=== PATIENT | male | born 2000 | race African-American/Black ===

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

== ENCOUNTER 2019-01-18 14:30 | Emergency (ER) | payer SELFPAY ==
[2019-01-18] MEDS ORDERED: Acetaminophen 500 MG TAB ONE (15:51)
[2019-01-18] MEDS ORDERED: Ibuprofen 400 MG TAB ONE (15:51)
== END 2019-01-18 16:00 | disposition home or self-care (01) ==
LOC: MADERS 14:30
DX: R51 Headache (principal); E66.9 Obesity, unspecified; F20.9 Schizophrenia, unspecified; F41.9 Anxiety disorder, unspecified; F32.9 Major depressive disorder, single episode, unspecified; F90.9 Attention-deficit hyperactivity disorder, unspecified type; Z79.899 Other long term (current) drug therapy
CPT/HCPCS: 99283

== ENCOUNTER 2019-01-30 23:42 | Emergency (ER) | payer SELFPAY ==
[2019-01-31 00:22] LABS: Bilirubin Negative (Negative); Blood, Urine Trace (Negative); Clarity Clear (Clear); Glucose, Urine (Dipstick) Negative (Negative); Leukocyte Negative (Negative); Nitrite Negative (Negative); Protein, Urine (Dipstick) Negative (Neg-Trace); Urobilinogen 0.2 mg/dL (Less than 2)
[2019-01-31 00:24] LABS: Bacteria/HPF None Seen HPF (None Seen); Squamous Epithelial None Seen HPF (0-3); WBC/HPF None Seen HPF (0-3)
[2019-01-31] MEDS ORDERED: Doxycycline 100 MG CAP ONE (00:40)
== END 2019-01-31 00:50 | disposition home or self-care (01) ==
LOC: MADERS 23:42
DX: N34.1 Nonspecific urethritis (principal); J06.9 Acute upper respiratory infection, unspecified; F20.9 Schizophrenia, unspecified; F41.9 Anxiety disorder, unspecified; F32.9 Major depressive disorder, single episode, unspecified; Z79.899 Other long term (current) drug therapy
CPT/HCPCS: 81003; 81015; 99283

== ENCOUNTER 2019-03-29 03:12 | Emergency (ER) | payer SELFPAY | END 2019-03-29 03:44 | disposition home or self-care (01) | LOC: MADERS 03:12 | DX: S09.90XA Unspecified injury of head, initial encounter (principal); S20.219A Contusion of unspecified front wall of thorax, initial encounter; F20.9 Schizophrenia, unspecified; F41.9 Anxiety disorder, unspecified; F32.9 Major depressive disorder, single episode, unspecified; F90.9 Attention-deficit hyperactivity disorder, unspecified type; Z79.899 Other long term (current) drug therapy; W10.9XXA Fall (on) (from) unspecified stairs and steps, initial encounter | CPT/HCPCS: 99281 ==

== ENCOUNTER 2019-05-23 18:19 | Emergency (ER) | payer SELFPAY | END 2019-05-23 18:38 | disposition home or self-care (01) | LOC: MADERS 18:19 | DX: M79.645 Pain in left finger(s) (principal); E11.9 Type 2 diabetes mellitus without complications; E66.9 Obesity, unspecified; M10.9 Gout, unspecified; F41.9 Anxiety disorder, unspecified; F32.9 Major depressive disorder, single episode, unspecified; F90.9 Attention-deficit hyperactivity disorder, unspecified type; Z79.899 Other long term (current) drug therapy | CPT/HCPCS: 99281 ==

== ENCOUNTER 2019-07-22 22:33 | Emergency (ER) | payer SELFPAY ==
[2019-07-22] MEDS ORDERED: HYDROcodone/Acetaminophen 5/325 mg Tablet ONE (23:00)
== END 2019-07-22 23:02 | disposition home or self-care (01) ==
LOC: MADERS 22:33
DX: M25.562 Pain in left knee (principal); F20.9 Schizophrenia, unspecified; F41.9 Anxiety disorder, unspecified; F32.9 Major depressive disorder, single episode, unspecified; F90.9 Attention-deficit hyperactivity disorder, unspecified type; E11.9 Type 2 diabetes mellitus without complications
CPT/HCPCS: 99283

== ENCOUNTER 2019-10-02 01:02 | Emergency (ER) | payer SELFPAY ==
[2019-10-02] MEDS ORDERED: Ondansetron ODT 4 MG TAB ONE (01:20)
[2019-10-02 02:11] LABS: Band 1 % (5-11); Eosinophils 1 % (0-10); Hemoglobin 15.5 g/dL (14.0-18.0); Lymphocytes 19 % (28-48); MDiff Complete? YES; Mean Corpuscular HGB CONC 30.2 g/dL (32.0-36.0); Mean Corpuscular Hemoglobin 24.7 pg (25.0-35.0); Mean Corpuscular Volume 81.8 fL (78.0-98.0); Mean Platelet Volume 8.4 fL (7.4-10.4); Monocytes 4 % (0-4); Neutrophil 75 % (31-61); Platelet Count 219 thou/uL (130-400); RBC Distribution Width 13.2 % (11.5-14.5)
[2019-10-02 02:21] LABS: ALT (SGPT) 38 U/L (8-55); AST (SGOT) 36 U/L (5-34); Albumin 4.4 g/dL (3.5-5.0); Alkaline Phosphatase 91 U/L (50-130); Anion Gap 18 mmol/L (10-20); BUN (Urea Nitrogen) 10 mg/dL (8.9-20.6); Bilirubin, Total 0.4 mg/dL (0.2-1.2); Calc. Creatinine Clearance 0 mL/min (70-130); Calcium 9.7 mg/dL (7.8-10.44); Carbon Dioxide 19 mmol/L (22-29); Chloride 109 mmol/L (98-107); Estimated GFR-MDRD Greater than 90; Globulin 3.5 g/dL (2.4-3.5); Glucose 96 mg/dL (70-105); Lipase 37 U/L (8-78); Potassium 4.3 mmol/L (3.5-5.1); Protein, Total 7.9 g/dL (6.0-8.3); Sodium 142 mmol/L (136-145)
== END 2019-10-02 02:30 | disposition home or self-care (01) ==
LOC: MADERS 01:02
DX: R10.13 Epigastric pain (principal); R11.2 Nausea with vomiting, unspecified; F20.9 Schizophrenia, unspecified; F41.9 Anxiety disorder, unspecified; F90.9 Attention-deficit hyperactivity disorder, unspecified type; M10.9 Gout, unspecified
CPT/HCPCS: 36416; 80053; 83690; 85025; 99284; Q0162

== ENCOUNTER 2019-11-02 21:21 | Emergency (ER) | payer SELFPAY ==
[2019-11-02] MEDS ORDERED: Mag-Al Plus 1200 MG/1200 MG/120 MG/30 ML UDCUP ONE (21:48)
[2019-11-02] MEDS ORDERED: Lidocaine Viscous Sol 2% 15 ml UD Cup ONE (21:48)
== END 2019-11-02 22:02 | disposition home or self-care (01) ==
LOC: MADERS 21:21
DX: K29.00 Acute gastritis without bleeding (principal); I10 Essential (primary) hypertension; E66.01 Morbid (severe) obesity due to excess calories; E88.9 Metabolic disorder, unspecified; M10.9 Gout, unspecified; F20.9 Schizophrenia, unspecified; F41.9 Anxiety disorder, unspecified; F90.9 Attention-deficit hyperactivity disorder, unspecified type; F32.9 Major depressive disorder, single episode, unspecified; Z79.899 Other long term (current) drug therapy

== ENCOUNTER 2020-02-27 12:53 | Emergency (ER) | payer SELFPAY ==
[2020-02-27] MEDS ORDERED: Tetracaine 0.5% OPHTH SOLN/PF 4 ML BOT ONE (13:21)
[2020-02-27] MEDS ORDERED: Fluorescein Opthalmic Strip ONE (13:21)
== END 2020-02-27 13:46 | disposition home or self-care (01) ==
LOC: MADERS 12:53
DX: H01.9 Unspecified inflammation of eyelid (principal); I10 Essential (primary) hypertension; I47.1 Supraventricular tachycardia; E88.9 Metabolic disorder, unspecified; F20.9 Schizophrenia, unspecified; F41.9 Anxiety disorder, unspecified; I51.7 Cardiomegaly; F32.9 Major depressive disorder, single episode, unspecified; F90.9 Attention-deficit hyperactivity disorder, unspecified type; E66.9 Obesity, unspecified; M10.9 Gout, unspecified; E11.9 Type 2 diabetes mellitus without complications; Z79.899 Other long term (current) drug therapy
CPT/HCPCS: 99283

== ENCOUNTER 2021-01-22 13:23 | Outpatient (CLI) | payer OTHER ==
[2021-01-22 14:06] LABS: CKMB 1.5 ng/mL (0-6.6); Troponin I Less than 0.010 ng/mL (< 0.028)
[2021-01-22 14:08] LABS: ALT (SGPT) 39 U/L (8-55); AST (SGOT) 28 U/L (5-34); Albumin 4.3 g/dL (3.5-5.0); Alkaline Phosphatase 86 U/L (40-110); Anion Gap 15 mmol/L (10-20); BUN (Urea Nitrogen) 9 mg/dL (8.9-20.6); Bilirubin, Total 0.5 mg/dL (0.2-1.2); Calc. Creatinine Clearance 0 mL/min (70-130); Calcium 9.8 mg/dL (7.8-10.44); Carbon Dioxide 24 mmol/L (22-29); Cardiac Risk 5.9 (Less than 4.5); Chloride 104 mmol/L (98-107); Cholesterol 217 mg/dl (< 200 Desired); Globulin 3.2 g/dL (2.4-3.5); Glucose 92 mg/dL (70-105); HDL Cholesterol 37 mg/dL (>60 Neg Risk); LDL Cholesterol, Calculated 140 mg/dL; Potassium 4.1 mmol/L (3.5-5.1); Protein, Total 7.5 g/dL (6.0-8.3); Sodium 139 mmol/L (136-145); Triglycerides 198 mg/dL (Less than 150); Uric Acid 10.4 mg/dL (3.5-7.2)
[2021-01-22 14:18] LABS: Thyroid Stimulating Hormone 1.4106 uIU/mL (0.35-4.94)
[2021-01-22 21:06] LABS: Free T4 (Free Thyroxine) 0.89 ng/dL (0.70-1.48)
== END 2021-01-22 13:24 | disposition home or self-care (01) ==
LOC: MADLAB 13:23
PROVIDERS: ATTEND Family Medicine
DX: I47.1 Supraventricular tachycardia (principal); R07.1 Chest pain on breathing; M1A.9XX0 Chronic gout, unspecified, without tophus (tophi)
CPT/HCPCS: 36415; 80053; 80061; 82553; 84439; 84443; 84481; 84484; 84550

== ENCOUNTER 2021-01-22 13:27 | Outpatient (CLI) | payer OTHER | END 2021-01-22 13:28 | disposition home or self-care (01) | LOC: MADRAD 13:27 | PROVIDERS: ATTEND Family Medicine | DX: R00.0 Tachycardia, unspecified (principal); M25.561 Pain in right knee; M25.562 Pain in left knee; R07.89 Other chest pain | CPT/HCPCS: 93005; 93010 ==

== ENCOUNTER 2021-06-01 23:36 | Emergency (ER) | payer OTHER ==
[2021-06-02] MEDS ORDERED: Mag-Al Plus 1200 MG/1200 MG/120 MG/30 ML UDCUP ONE (00:07)
[2021-06-02] MEDS ORDERED: Lidocaine Viscous Sol 2% 15 ml UD Cup ONE (00:07)
[2021-06-02 00:57] LABS: Eosinophils 2 % (0-10); Hemoglobin 16.9 g/dL (14.0-18.0); Lymphocytes 43 % (21-51); MDiff Complete? YES; Mean Corpuscular HGB CONC 30.9 g/dL (32.0-36.0); Mean Corpuscular Hemoglobin 25.1 pg (27.0-31.0); Mean Corpuscular Volume 81.2 fL (78.0-98.0); Mean Platelet Volume 7.4 fL (7.4-10.4); Monocytes 3 % (0-10); Neutrophil 52 % (42-75); Platelet Count 273 thou/uL (130-400); RBC Distribution Width 12.8 % (11.5-14.5); RBC Morphology Normal; Red Blood Cell (RBC) Count 6.74 mill/uL (4.70-6.10); White Blood Cell (WBC) Count 6.8 thou/uL (4.8-10.8)
[2021-06-02] MEDS ORDERED: Famotidine 20 MG TAB ONE (01:06)
[2021-06-02 01:10] LABS: ALT (SGPT) 22 U/L (8-55); AST (SGOT) 17 U/L (5-34); Albumin 4.4 g/dL (3.5-5.0); Alkaline Phosphatase 90 U/L (40-110); Anion Gap 16 mmol/L (10-20); BUN (Urea Nitrogen) 10 mg/dL (8.9-20.6); Bilirubin, Total 0.3 mg/dL (0.2-1.2); Calc. Creatinine Clearance 0 mL/min (70-130); Chloride 104 mmol/L (98-107); Globulin 3.4 g/dL (2.4-3.5); Glucose 99 mg/dL (70-105); Lipase 52 U/L (8-78); Potassium 3.9 mmol/L (3.5-5.1); Protein, Total 7.8 g/dL (6.0-8.3); Sodium 139 mmol/L (136-145)
[2021-06-02 01:16] LABS: Carbon Dioxide 23 mmol/L (22-29)
== END 2021-06-02 01:37 | disposition home or self-care (01) ==
LOC: MADERS 23:36
DX: K29.00 Acute gastritis without bleeding (principal); I10 Essential (primary) hypertension; E11.9 Type 2 diabetes mellitus without complications; M10.9 Gout, unspecified; I51.7 Cardiomegaly; E88.89 Other specified metabolic disorders; E66.9 Obesity, unspecified; Z68.45 Body mass index [BMI] 70 or greater, adult; Z87.19 Personal history of other diseases of the digestive system
CPT/HCPCS: 80053; 83690; 85025; 99284

== ENCOUNTER 2021-08-07 17:24 | Emergency (ER) | payer OTHER ==
[2021-08-07 18:45] LABS: ALT (SGPT) 33 U/L (8-55); AST (SGOT) 46 U/L (5-34); Acetaminophen Less than 6.0 mcg/mL (10.0-30.0); Albumin 4.9 g/dL (3.5-5.0); Alcohol Less than 10 mg/dL (Less than 10); Alkaline Phosphatase 96 U/L (40-110); Anion Gap 22 mmol/L (10-20); BUN (Urea Nitrogen) 12 mg/dL (8.9-20.6); Bilirubin, Total 0.6 mg/dL (0.2-1.2); Calc. Creatinine Clearance 0 mL/min (70-130); Carbon Dioxide 19 mmol/L (22-29); Chloride 105 mmol/L (98-107); Glucose 109 mg/dL (70-105); Lipase 33 U/L (8-78); Protein, Total 7.9 g/dL (6.0-8.3); Salicylate Less than 8.0 mg/dL (15.0-30.0); Sodium 142 mmol/L (136-145)
[2021-08-07 19:17] LABS: Bilirubin Small (Negative); Blood, Urine Moderate (Negative); Clarity Clear (Clear); Glucose, Urine (Dipstick) Negative (Negative); Ketone, Urine 80 mg/dL (Negative); Leukocyte Negative (Negative); Nitrite Negative (Negative); Protein, Urine (Dipstick) Negative (Neg-Trace); Urobilinogen 0.2 mg/dL (Less than 2)
[2021-08-07 19:19] LABS: Hemoglobin 16.3 g/dL (14.0-18.0); Mean Corpuscular HGB CONC 30.6 g/dL (32.0-36.0); Mean Corpuscular Hemoglobin 24.4 pg (27.0-31.0); Mean Corpuscular Volume 79.5 fL (78.0-98.0); Mean Platelet Volume 8.1 fL (7.4-10.4); Platelet Count 271 thou/uL (130-400); RBC Distribution Width 12.6 % (11.5-14.5); Red Blood Cell (RBC) Count 6.68 mill/uL (4.70-6.10); White Blood Cell (WBC) Count 6.9 thou/uL (4.8-10.8)
[2021-08-07 19:20] LABS: Band 2 % (5-11); Eosinophils 2 % (0-10); Lymphocytes 17 % (21-51); MDiff Complete? YES; Monocytes 2 % (0-10); Neutrophil 70 % (42-75); Platelet Morphology Comment Appears Adequate; RBC Morphology Normal; Reactive Lymphocytes 7 % (0-10)
[2021-08-07 19:22] LABS: Specific Gravity, Urine 1.028 (1.002-1.036)
[2021-08-07 19:24] LABS: Amphetamine Not Detected (NotDetected); Barbiturates Screen Not Detected (NotDetected); Benzodiazepine Screen Not Detected (NotDetected); Cocaine Metabolite Screen Not Detected (NotDetected); Medtox Control Line Valid? VALID (VALID); Methadone Not Detected (NotDetected); Methamphetamine Not Detected (NotDetected); Opiate Screen Not Detected (NotDetected); Oxycodone Screen Not Detected (NotDetected); Phencyclidine (PCP) Not Detected (NotDetected); THC/Cannabinoid Screen Not Detected (NotDetected); Tricyclic Screen Not Detected (NotDetected)
[2021-08-07 19:26] LABS: Bacteria/HPF Rare-Few HPF (None Seen); RBC/HPF 0-3 HPF (0-3); Squamous Epithelial 0-3 HPF (0-3); WBC/HPF 0-3 HPF (0-3)
[2021-08-07] MEDS ORDERED: Atenolol 25 MG TAB ONE (19:32)
== END 2021-08-07 19:53 | disposition home or self-care (01) ==
LOC: MADERS 17:24
DX: S46.912A Strain of unspecified muscle, fascia and tendon at shoulder and upper arm level, left arm, initial encounter (principal); S39.012A Strain of muscle, fascia and tendon of lower back, initial encounter; R00.0 Tachycardia, unspecified; X50.0XXA Overexertion from strenuous movement or load, initial encounter; E66.9 Obesity, unspecified; M10.9 Gout, unspecified; I10 Essential (primary) hypertension; E11.9 Type 2 diabetes mellitus without complications
CPT/HCPCS: 71046; 80053; 80306; 80307; 81003; 81015; 83690; 83735; 84443; 84484; 85025; 85379; 93005; 94760

== ENCOUNTER 2022-03-04 02:54 | Emergency (ER) | payer OTHER ==
[2022-03-04] MEDS ORDERED: Mag-Al Plus 1200 MG/1200 MG/120 MG/30 ML UDCUP ONE (03:25)
[2022-03-04] MEDS ORDERED: Aspirin Chewable 81 MG TAB ONE (03:25)
[2022-03-04] MEDS ORDERED: Lidocaine Viscous Sol 2% 15 ml UD Cup ONE (03:25)
[2022-03-04 03:41] LABS: Band 1 % (5-11); Eosinophils 3 % (0-10); Hemoglobin 15.9 g/dL (14.0-18.0); Lymphocytes 40 % (21-51); MDiff Complete? YES; Mean Corpuscular HGB CONC 29.7 g/dL (32.0-36.0); Mean Corpuscular Hemoglobin 24.2 pg (27.0-31.0); Mean Corpuscular Volume 81.6 fL (78.0-98.0); Mean Platelet Volume 10.1 fL (7.4-10.4); Monocytes 6 % (0-10); Neutrophil 50 % (42-75); Platelet Count 225 thou/uL (130-400); Platelet Morphology Comment Appears Adequate; RBC Distribution Width 13.2 % (11.5-14.5); RBC Morphology Normal; Red Blood Cell (RBC) Count 6.58 mill/uL (4.70-6.10); White Blood Cell (WBC) Count 5.6 thou/uL (4.8-10.8)
[2022-03-04] MEDS ORDERED: Famotidine 20 MG TAB ONE (03:43)
[2022-03-04 03:50] LABS: ALT (SGPT) 21 U/L (8-55); AST (SGOT) 23 U/L (5-34); Albumin 4.5 g/dL (3.5-5.0); Alkaline Phosphatase 87 U/L (40-110); Anion Gap 17 mmol/L (10-20); BUN (Urea Nitrogen) 14 mg/dL (8.9-20.6); Bilirubin, Total 0.5 mg/dL (0.2-1.2); Calc. Creatinine Clearance 0 mL/min (70-130); Calcium 10.3 mg/dL (7.8-10.44); Carbon Dioxide 26 mmol/L (22-29); Chloride 105 mmol/L (98-107); Estimated GFR 98; Globulin 3.1 g/dL (2.4-3.5); Glucose 93 mg/dL (70-105); Lipase 54 U/L (8-78); Potassium 4.3 mmol/L (3.5-5.1); Protein, Total 7.6 g/dL (6.0-8.3); Sodium 144 mmol/L (136-145)
== END 2022-03-04 08:14 | disposition home or self-care (01) ==
LOC: MADERS 02:54
DX: R07.2 Precordial pain (principal); I10 Essential (primary) hypertension; E11.9 Type 2 diabetes mellitus without complications; M10.9 Gout, unspecified; E07.9 Disorder of thyroid, unspecified; I47.1 Supraventricular tachycardia; K21.9 Gastro-esophageal reflux disease without esophagitis; E66.01 Morbid (severe) obesity due to excess calories; Z68.45 Body mass index [BMI] 70 or greater, adult; Z87.19 Personal history of other diseases of the digestive system
CPT/HCPCS: 36415; 71046; 80053; 83690; 84484; 85025; 93005; 94760

== ENCOUNTER 2022-06-19 01:57 | Emergency (ER) | payer OTHER, SELFPAY ==
[2022-06-19] MEDS ORDERED: Famotidine/PF 20 mg/2ml Vial ONE (03:06)
[2022-06-19] MEDS ORDERED: Aspirin Chewable 81 MG TAB ONE (03:06)
[2022-06-19] MEDS ORDERED: Mag-Al Plus 1200 MG/1200 MG/120 MG/30 ML UDCUP ONE (03:07)
[2022-06-19] MEDS ORDERED: Lidocaine Viscous Sol 2% 15 ml UD Cup ONE (03:07)
[2022-06-19 03:32] LABS: Band 7 % (5-11); Eosinophils 2 % (0-10); Hemoglobin 16.4 g/dL (14.0-18.0); Lymphocytes 26 % (21-51); MDiff Complete? YES; Mean Corpuscular Volume 81.4 fl (78.0-98.0); Mean Platelet Volume 9.5 fL (7.4-10.4); Monocytes 9 % (0-10); Neutrophil 56 % (42-75); Platelet Count 236 10x3/uL (130-400); RBC Distribution Width 12.5 % (11.5-14.5); RBC Morphology Normal; Red Blood Cell (RBC) Count 6.29 mill/uL (4.70-6.10); White Blood Cell (WBC) Count 6.4 10x3/uL (4.8-10.8)
[2022-06-19 03:34] LABS: ALT (SGPT) 20 U/L (8-55); Albumin 4.3 g/dL (3.5-5.0); Alkaline Phosphatase 84 U/L (40-110); Anion Gap 18 mmol/L (10-20); BUN (Urea Nitrogen) 11 mg/dL (8.9-20.6); Bilirubin, Total 0.4 mg/dL (0.2-1.2); Calc. Creatinine Clearance 0 mL/min (70-130); Carbon Dioxide 21 mmol/L (22-29); Chloride 105 mmol/L (98-107); Estimated GFR 128; Globulin 3.4 g/dL (2.4-3.5); Glucose 91 mg/dL (70-105); Lipase 58 U/L (8-78); Potassium 4.4 mmol/L (3.5-5.1); Protein, Total 7.7 g/dL (6.0-8.3); Sodium 140 mmol/L (136-145)
[2022-06-19 03:35] LABS: AST (SGOT) 26 U/L (5-34)
[2022-06-19 06:44] LABS: Troponin I Less than 0.010 ng/mL (< 0.028)
[2022-06-19 07:07] LABS: Amphetamine Not Detected (NotDetected); Barbiturates Screen Not Detected (NotDetected); Benzodiazepine Screen Not Detected (NotDetected); Cocaine Metabolite Screen Not Detected (NotDetected); Methadone Not Detected (NotDetected); Methamphetamine Not Detected (NotDetected); Opiate Screen Not Detected (NotDetected); Oxycodone Screen Not Detected (NotDetected); Phencyclidine (PCP) Not Detected (NotDetected); THC/Cannabinoid Screen Not Detected (NotDetected); Tricyclic Screen Not Detected (NotDetected)
[2022-06-19 07:08] LABS: Medtox Control Line Valid? VALID (VALID)
== END 2022-06-19 07:12 | disposition home or self-care (01) ==
LOC: MADERS 01:57
DX: R07.89 Other chest pain (principal); K21.9 Gastro-esophageal reflux disease without esophagitis; E78.00 Pure hypercholesterolemia, unspecified; I10 Essential (primary) hypertension; E11.9 Type 2 diabetes mellitus without complications
CPT/HCPCS: 71045; 80053; 80306; 83690; 84484; 85025; 85379; 93005; 96374; S0028

== ENCOUNTER 2022-07-26 01:58 | Emergency (ER) | payer SELFPAY ==
[2022-07-26] MEDS ORDERED: Mag-Al Plus 1200 MG/1200 MG/120 MG/30 ML UDCUP ONE (02:17)
[2022-07-26] MEDS ORDERED: Lidocaine Viscous Sol 2% 15 ml UD Cup ONE (02:17)
== END 2022-07-26 02:33 | disposition home or self-care (01) ==
LOC: MADERS 01:58
DX: K29.70 Gastritis, unspecified, without bleeding (principal); I10 Essential (primary) hypertension; E78.00 Pure hypercholesterolemia, unspecified
CPT/HCPCS: 99283

== ENCOUNTER 2022-09-03 02:45 | Emergency (ER) | payer SELFPAY ==
[2022-09-03] MEDS ORDERED: Lidocaine Viscous Sol 2% 15 ml UD Cup ONE (03:03)
[2022-09-03] MEDS ORDERED: Mag-Al Plus 1200 MG/1200 MG/120 MG/30 ML UDCUP ONE (03:03)
== END 2022-09-03 03:26 | disposition home or self-care (01) ==
LOC: MADERS 02:45
DX: K29.70 Gastritis, unspecified, without bleeding (principal); I10 Essential (primary) hypertension; E78.00 Pure hypercholesterolemia, unspecified
CPT/HCPCS: 71045; 93005

== ENCOUNTER 2022-11-04 21:26 | Emergency (ER) | payer BC, SELFPAY ==
[2022-11-04] MEDS ORDERED: Tetracaine 0.5% PF 4 ML BOT ONE (21:56)
[2022-11-04] MEDS ORDERED: Fluorescein Opthalmic Strip ONE (21:56)
== END 2022-11-04 22:28 | disposition home or self-care (01) ==
LOC: MADERS 21:26
DX: S63.501A Unspecified sprain of right wrist, initial encounter (principal); H10.9 Unspecified conjunctivitis; I10 Essential (primary) hypertension; E78.00 Pure hypercholesterolemia, unspecified; X50.1XXA Overexertion from prolonged static or awkward postures, initial encounter
CPT/HCPCS: 99283

== ENCOUNTER 2022-11-15 01:47 | Emergency (ER) | payer BC ==
[2022-11-15] MEDS ORDERED: Lidocaine Viscous Sol 2% 15 ml UD Cup ONE (02:03)
[2022-11-15] MEDS ORDERED: Mag-Al Plus 1200 MG/1200 MG/120 MG/30 ML UDCUP ONE (02:03)
== END 2022-11-15 02:38 | disposition home or self-care (01) ==
LOC: MADERS 01:47
DX: R10.13 Epigastric pain (principal); I10 Essential (primary) hypertension; E66.9 Obesity, unspecified
CPT/HCPCS: 99283

== ENCOUNTER 2023-01-16 11:50 | Emergency (ER) | payer BC ==
[2023-01-16] MEDS ORDERED: NEOMYCIN-POLYMYXIN-HC EAR SUSP 200 DROP/10 ML BOT ONE (12:32)
== END 2023-01-16 12:40 | disposition home or self-care (01) ==
LOC: MADERS 11:50
DX: L30.9 Dermatitis, unspecified (principal); E66.9 Obesity, unspecified; E78.00 Pure hypercholesterolemia, unspecified; I10 Essential (primary) hypertension
CPT/HCPCS: 99282

== ENCOUNTER 2023-01-20 06:19 | Emergency (ER) | payer BC ==
[2023-01-20 07:30] LABS: Amphetamine Not Detected (NotDetected); Barbiturates Screen Not Detected (NotDetected); Benzodiazepine Screen Not Detected (NotDetected); Cocaine Metabolite Screen Not Detected (NotDetected); Methadone Not Detected (NotDetected); Methamphetamine Not Detected (NotDetected); Opiate Screen Not Detected (NotDetected); Oxycodone Screen Not Detected (NotDetected); Phencyclidine (PCP) Not Detected (NotDetected); THC/Cannabinoid Screen Not Detected (NotDetected); Tricyclic Screen Not Detected (NotDetected)
[2023-01-20 07:31] LABS: Clarity Clear (Clear)
[2023-01-20 07:36] LABS: Hemoglobin 16.4 g/dL (14.0-18.0); Mean Corpuscular HGB CONC 31.1 g/dL (32.0-36.0); Mean Corpuscular Hemoglobin 25.6 pg (27.0-31.0); Mean Corpuscular Volume 82.5 fl (78.0-98.0); Mean Platelet Volume 10.5 fL (7.4-10.4); Platelet Count 170 10x3/uL (130-400); RBC Distribution Width 13.9 % (11.5-14.5); White Blood Cell (WBC) Count 3.2 10x3/uL (4.8-10.8)
[2023-01-20 07:40] LABS: MDiff Complete? YES; Manual Diff?? YES
[2023-01-20 07:41] LABS: Anisocytosis SLIGHT = 6-15 cells (100X) (0-5/hpf); Band 2 % (5-11); Eosinophils 2 % (0-10); Lymphocytes 37 % (21-51); Monocytes 12 % (0-10); Neutrophil 47 % (42-75); Platelet Adequacy Comment Appears Adequate
[2023-01-20 07:52] LABS: Nitrite Unable to Interpret (Negative); Protein, Urine (Dipstick) Unable to Interpret mg/dL (Neg-Trace)
[2023-01-20 07:53] LABS: Glucose, Urine (Dipstick) Unable to Interpret mg/dL (Negative)
[2023-01-20 07:54] LABS: Blood, Urine Moderate (Negative); Ketone, Urine Unable to Interpret mg/dL (Negative)
[2023-01-20 07:55] LABS: Specific Gravity, Urine 1.028 (1.002-1.036)
[2023-01-20 07:56] LABS: Bilirubin Unable to Interpret (Negative); Leukocyte Unable to Interpret (Negative)
[2023-01-20 07:57] LABS: Bacteria/HPF 1+ HPF (None Seen); CAUTI Indications for Culture Pregnancy; RBC/HPF 21-50 HPF (0-3); Squamous Epithelial 0-3 HPF (0-3); WBC/HPF 0-3 HPF (0-3)
[2023-01-20 07:58] LABS: Urine Culture Reflex Yes Yes
[2023-01-20 08:03] LABS: ALT (SGPT) 33 U/L (8-55); AST (SGOT) 34 U/L (5-34); Albumin 4.5 g/dL (3.5-5.0); Alkaline Phosphatase 94 U/L (40-110); Anion Gap 17 mmol/L (10-20); BUN (Urea Nitrogen) 7 mg/dL (8.9-20.6); Bilirubin, Total 0.2 mg/dL (0.2-1.2); Calc. Creatinine Clearance 0 mL/min (70-130); Calcium 9.9 mg/dL (7.8-10.44); Carbon Dioxide 22 mmol/L (22-29); Chloride 105 mmol/L (98-107); Estimated GFR 125; Globulin 3.7 g/dL (2.4-3.5); Glucose 88 mg/dL (70-105); Potassium 4.4 mmol/L (3.5-5.1); Protein, Total 8.2 g/dL (6.0-8.3); Sodium 140 mmol/L (136-145)
== END 2023-01-20 08:01 | disposition home or self-care (01) ==
LOC: MADERS 06:19
DX: B34.9 Viral infection, unspecified (principal); R07.89 Other chest pain; E66.01 Morbid (severe) obesity due to excess calories; I10 Essential (primary) hypertension
CPT/HCPCS: 71046; 80053; 80306; 81001; 84484; 85025; 87081; 87086; 87430; 87804; 93005

== ENCOUNTER 2023-03-25 04:41 | Emergency (ER) | payer BC, SELFPAY ==
[2023-03-25] MEDS ORDERED: Mag-Al Plus 1200 MG/1200 MG/120 MG/30 ML UDCUP ONE (05:05)
[2023-03-25] MEDS ORDERED: Lidocaine Viscous Sol 2% 15 ml UD Cup ONE (05:05)
== END 2023-03-25 05:24 | disposition home or self-care (01) ==
LOC: MADERS 04:41
DX: K21.9 Gastro-esophageal reflux disease without esophagitis (principal); E66.9 Obesity, unspecified; I10 Essential (primary) hypertension

== ENCOUNTER 2023-04-01 04:26 | Emergency (ER) | payer SELFPAY ==
[2023-04-01] MEDS ORDERED: Famotidine 20 MG TAB ONE (04:46)
== END 2023-04-01 05:19 | disposition home or self-care (01) ==
LOC: MADERS 04:26
DX: K21.9 Gastro-esophageal reflux disease without esophagitis (principal); I10 Essential (primary) hypertension; E78.00 Pure hypercholesterolemia, unspecified
CPT/HCPCS: 99283

== ENCOUNTER 2023-12-01 06:18 | Emergency (ER) | payer OTHER | END 2023-12-01 07:34 | disposition home or self-care (01) | LOC: MADERS 06:18 | DX: M25.532 Pain in left wrist (principal); G62.9 Polyneuropathy, unspecified; I10 Essential (primary) hypertension ==

== ENCOUNTER 2024-05-13 14:10 | Emergency (ER) | payer OTHER, SELFPAY | END 2024-05-13 15:10 | disposition home or self-care (01) | LOC: MADERS 14:10 | DX: J06.9 Acute upper respiratory infection, unspecified (principal); I10 Essential (primary) hypertension | CPT/HCPCS: 36416; 99283 ==